=== PATIENT | female | born 1985 | race Caucasian/White ===

== ENCOUNTER 2021-11-08 09:47 | Emergency (ER) | payer OTHER | END 2021-11-08 11:00 | disposition left against medical advice (07) | LOC: ER1 09:47 | DX: S80.11XA Contusion of right lower leg, initial encounter (principal); S90.01XA Contusion of right ankle, initial encounter; S40.012A Contusion of left shoulder, initial encounter; F17.200 Nicotine dependence, unspecified, uncomplicated; W19.XXXA Unspecified fall, initial encounter | CPT/HCPCS: 99282 ==